=== PATIENT | female | born 1970 | race Caucasian/White ===

== ENCOUNTER 2019-09-25 01:02 | Emergency (ER) | payer BC, SELFPAY ==
[2019-09-25 01:03] VITALS: BP 119/84; PULSE 91; RESP 16; TEMP 36.4; O2SAT 99; BMI 23.3
--- NOTE | 2019-09-25 01:24 | ED.VIS.GEN ---
History of Present Illness Chief Complaint: Dental Informant: Patient Narrative: Patient states that she is developed swelling along the left lower gumline and mandible. She notes it is painful. She is trying to find a dentist. Past Medical History - Allergies and Home Meds Allergies/Adverse Reactions: Allergies aspirin Allergy (Verified 09/25/19 01:07) Hives ibuprofen Allergy (Verified 09/25/19 01:07) Hives Penicillins Allergy (Verified 09/25/19 01:07) Hives Smoking Status: Light Smoker (<10/day) Review of Systems General: Denies: Chills, Fever, Sweats Eyes: Denies: Visual changes - bilaterally, Diplopia ENT: Reports: - - Gumline swelling. Denies: Rhinorrhea, Sore throat Cardiovascular: Denies: Chest pain, Palpitations Respiratory: Denies: Dyspnea, Cough, Dyspnea on exertion Gastrointestinal: Denies: Abdominal pain, Nausea, Vomiting, Diarrhea, Melena, Hematochezia Genitourinary: Denies: Dysuria, Hematuria, Frequency Musculoskeletal: Denies: Back pain, Extremity Pain Skin: Denies: Rash, Wounds Neurological: Denies: Headache, Weakness, Numbness Physical Exam Vital Signs/Narrative: Vital Signs Temp Pulse Resp BP Pulse Ox 09/25/19 01:03 97.5 F L 91 16 119/84 H 99 Inital Vital Signs reviewed: Yes General: Well nourished, Well developed, No Acute Distress Head: Normocephalic, Atraumatic Eyes: Perrl, EOMI ENT: Moist mucous membranes, No rhinorrhea, - - Patient has no trismus. Floor the mouth is soft. There is some mild swelling along the left lower molar. There is felt some focal decay. There is swelling along the mandible without erythema. Neck: Supple, Nontender Cardiovascular: Regular rate, Regular rhythm, No murmurs Respiratory: No distress, CTA bilaterally, Chest nontender Abdomen: Soft, Nontender, Nondistended, Normal bowel sounds Back: Nontender, Normal Inspection Extremities: Nontender, No edema Skin: Normal color, No rash Neurological: Alert, Oriented x3, Cranial nerves II-XII grossly intact, Normal Strength, Normal Sensation Psychological: Normal affect, Normal Mood Diagnostic/Tx/Re-eval - Medical Decision Making Patient was started on clindamycin due to penicillin allergy. I will write for a few [place]. Patient needs to see dentistry as soon as possible for definitive care. She was advised that the swelling will most likely worsen before it improves. ED Disposition - Plan for ED Patient: Disposition: Home or Assisted Living Diagnosis: Periapical abscess Instructions: Dental Abscess Prescriptions: Clindamycin [Cleocin] 300 mg PO 4X/DAY #80 cap Prescription Printed Hydrocodone Bitart/Apap 5-325 [[place] 5MG-325MG] 1 tab PO Q6H PRN PRN 3 Days #12 tab PRN Reason: Pain Prescription Printed Additional Instructions: Please follow-up with dentistry as soon as possible
[2019-09-25] MEDS: Clindamycin HCl 150 MG Capsule 300 MG PO (01:46)
== END 2019-09-25 01:52 | disposition home or self-care (01) ==
LOC: ED 01:41
PROVIDERS: Emergency Provider Emergency Medicine
DX: K04.7 Periapical abscess without sinus (principal); F17.200 Nicotine dependence, unspecified, uncomplicated
CPT/HCPCS: 99283

== ENCOUNTER 2021-07-01 13:38 | Outpatient (CLI) | payer BC, SELFPAY ==
[2021-07-08 15:20] LABS: HPV Reflexed? NOT INDICATED
== END 2021-07-01 23:59 | disposition home or self-care (01) ==
PROVIDERS: Visit Provider Obstetrics & Gynecology
DX: Z12.4 Encounter for screening for malignant neoplasm of cervix (principal); N77.1 Vaginitis, vulvitis and vulvovaginitis in diseases classified elsewhere
CPT/HCPCS: 88175; G0145

== ENCOUNTER 2021-07-05 12:13 | Outpatient (CLI) | payer BC, SELFPAY ==
--- NOTE | 2021-07-05 12:22 | BI_ITS ---
MAMMOGRAPHY - BILATERAL SCREENING REASON FOR EXAM: Female, 50 years old. Routine annual screening examination. PERTINENT HISTORY: Grandmother with breast cancer. TECHNIQUE: Digital bilateral breast moraima (3D mammographic acquisition) in the CC and MLO projections. 2-D mediolateral oblique (MLO) and craniocaudad (CC) views of both breasts were obtained. CAD: Full Field Digital Mammography with Computer Added Detection was performed. COMPARISON: None. Baseline examination. FINDINGS: Breast Composition: The breasts are heterogeneously dense, which may obscure small masses. There are no dominant masses or suspicious calcifications. No other significant abnormalities are identified. BI/SCRN MAMM (CAD)W/MORAIMA BILAT IMPRESSION: Negative screening mammogram. Yearly followup mammogram recommended. (A) ASSESSMENT CATEGORY: BIRADS Category 1: Negative. A letter regarding these results will be sent to the patient by the facility within 30 days. Approximately 10% of breast cancers are not detected by mammography. A normal mammogram should not delay biopsy of a clinically suspicious abnormality. [id number] Electronically Signed: Jordan Paredes MD at 13:16 EDT ,
== END 2021-07-05 23:59 | disposition home or self-care (01) ==
LOC: OPBI 12:14
PROVIDERS: Referring Provider Obstetrics & Gynecology; Visit Provider Obstetrics & Gynecology
DX: Z12.31 Encounter for screening mammogram for malignant neoplasm of breast (principal)
CPT/HCPCS: 77063; 77067

== ENCOUNTER 2023-12-30 09:52 | Observation (INO) | payer BC, SELFPAY ==
[2023-12-30] VITALS (12 sets, daily range): BP systolic 129–150; BP diastolic 75–94; PULSE 67–108; RESP 16–18; TEMP 35.8–37.1; O2SAT 96–100; BMI 26.3
--- NOTE | 2023-12-30 10:22 | CT_ITS ---
STUDY: CT ABDOMEN AND PELVIS WITH CONTRAST REASON FOR EXAM: Female, 53 years old. abdominal pain RADIATION DOSAGE (If Supplied By Facility): CTDIvol = ( 10.97 ) mGy, DLP = ( 555.30 ) mGycm TECHNIQUE: Transaxial images were obtained from the dome of the diaphragm to the symphysis pubis without oral contrast. IV 100mL Isovue-370 was administered. Sagittal and coronal images were reconstructed. Individualized dose optimization techniques were used for this CT. COMPARISON: None. FINDINGS: The visualized lung bases are unremarkable. The visualized portions of the heart are within normal limits. Normal liver. Normal gallbladder and extrahepatic biliary system. Normal spleen. Normal pancreas. Normal bilateral adrenal glands. Normal right kidney. Normal left kidney. Normal visualized stomach. Normal small intestine. Normal colon. There is a tubular, thick-walled appendix (11 mm) with periappendiceal stranding/inflammation, consistent with acute appendicitis. Small, subcentimeter reactive appearing lymph nodes in the right lower quadrant. Normal abdominal aorta. Normal inferior vena cava. Normal retroperitoneum. Normal urinary bladder. Normal abdominal wall. Normal osseous structures. CT/Abdomen/Pelvis W IV Cont ONLY IMPRESSION: Acute appendicitis without perforation or focal abscess. Electronically Signed: Lucio Thomas MD ([place]) at 11:00 EDT ,
--- NOTE | 2023-12-30 10:23 | EX.ED.DYSGE1 ---
HPI History of Present Illness Chief Complaint: Abd Pain Informant: patient Narrative Narrative: 53-year-old female presenting to the emergency room with abdominal pain. Patient states that on she went to the fair and had a sausage with onions and peppers. Monday she had sloppy Black's. She developed several episodes of diarrhea and gas/bloating in addition to abdominal discomfort. It is worse when she lays on her left side and when she moves. She has not had a fever. She notes associated nausea without vomiting she denies any urinary symptoms. She states she went to urgent care who was advised to come to emergency room as she made in an antibiotic or have appendicitis. Patient also notes that she was supposed to work mandatory overtime today and had to call off so she needs a work note. PFSH [facility] Home Medications ?Medication ?Instructions ?Recorded ?Last Taken ?Type clindamycin HCl 150 mg capsule 300 mg (2 x 150 mg) PO 4X/DAY #80 09/25/19 Unknown Rx caps Allergy/AdvReac Type Severity Reaction Status Date / Time aspirin Allergy Hives Verified 12/30/23 10:00 ibuprofen Allergy Hives Verified 12/30/23 10:00 Penicillins Allergy Hives Verified 12/30/23 10:00 Social History Smoking Status: Former smoker ROS ROS ED Constitutional Constitutional ED: Denies chills, fever(s) or weight loss Eyes Eyes: Denies change in vision or diplopia ENT ENT ED: Denies ear pain, rhinorrhea or sore throat Cardiovascular Cardiovascular: Denies chest pain, orthopnea, palpitations or racing heartbeat Respiratory/Chest Respiratory/Chest: Denies cough, dyspnea or orthopnea Gastrointestinal Gastrointestinal: Reports abdominal pain, diarrhea and nausea; Denies vomiting Genitourinary Genitourinary ED: Denies dysuria, hematuria or urinary frequency Musculoskeletal Musculoskeletal: Denies arthralgias or myalgias Integumentary Denies abscess or rash Neurologic Neurologic: Denies headache(s) or weakness Psychiatric Psychiatric: Denies anxiety, depression, suicidal ideation or suicidal thoughts Endocrine Endocrinology: Denies polydipsia, polyphagia or polyuria Allergic/Immunologic Allergic/Immunologic ED: Denies mouth swelling, tongue swelling or urticaria EXAM Physical Exam Const Vital Signs: 12/30/23 09:52 Temperature 96.4 F L Temperature Source Temporal Pulse Rate 103 H Respiratory Rate 18 Blood Pressure 150/94 H Blood Pressure Mean 112 Pulse Ox 99 Oxygen Delivery Method Room Air Positive well nourished and well developed General Appearance ED: well developed HEENT Reports normocephalic, head/scalp atraumatic and moist mucous membranes Eyes PERRL and EOMs intact bilaterally Neck no lymphadenopathy, supple and no JVD Resp normal respiratory effort and clear to auscultation bilaterally Cardio regular rate, regular rhythm and no murmurs GI GI Narrative: Mild diffuse tenderness to palpation no guarding or rebound Inspection: Negative for abdominal distention Auscultation: normoactive bowel sounds Palpation: soft; Negative for guarding or rebound tenderness present Back/Spine no CVA tenderness and normal ROM Extremity normal to inspection General Extremety ED: Negative for edema General Extremity: Negative for edema Neuro oriented x3 and CN's II-XII intact bilaterally Sensorium / Orientation: alert Motor Exam: strength 5/5 throughout Psych mental status grossly normal Mood & Affect: Negative for depressed or tearful Skin no rashes or lesions noted and no wounds MDM MDM MDM Narrative Medical decision making narrative: Differential diagnosis includes but not limited to acute colitis enteritis appendicitis cholecystitis UTI White count 10.3 with a slight shift with 80.2 neutrophils. Normal liver lipase. BMP within normal limits. CT of the abdomen pelvis was obtained which demonstrates acute appendicitis. Patient received morphine IV fluids Cipro and Flagyl (secondary to penicillin allergy). Patient was updated and I discussed the case with Dr. Verduzco who will be in to evaluate the patient. History & Record Review Discussion w/independent historian: Patient Lab Data Attestation: I reviewed the patient's lab results. Labs: Laboratory Results - last 24 hr 12/30/23 10:15 WBC 10.3 RBC 4.22 Hgb 12.7 Hct 37.8 MCV 89.6 MCH 30.1 MCHC 33.6 RDW Std Deviation 38.5 RDW Coeff of Veena 11.9 Plt Count 224 MPV 10.6 Immature Gran % (Auto) 0.400 Neut % (Auto) 80.2 H Lymph % (Auto) 12.4 L Villal[place] % (Auto) 5.8 Eos % (Auto) 0.7 Baso % (Auto) 0.5 Absolute Neuts (auto) 8.3 H Absolute Lymphs (auto) 1.28 Nucleated RBC % 0 Sodium 139 Potassium 3.6 Chloride 107 Carbon Dioxide 25.0 Anion Gap 7 BUN 10 Creatinine 0.82 Estim Creat Clear Calc 77.02 Est GFR (MDRD) Af Amer 93 Est GFR (MDRD) Non-Af 77 BUN/Creatinine Ratio 12.2 Glucose 105 Calcium 9.5 Total Bilirubin 0.70 Direct Bilirubin 0.18 AST 12 L ALT 17 Alkaline Phosphatase 93 Total Protein 7.6 Albumin 3.9 Globulin 3.7 Lipase 40 Radiography Diagnostic Testing: Clinical Impression(s) from Imaging Studies Abdomen/Pelvis CT 12/30/23 10:22 IMPRESSION: Acute appendicitis without perforation or focal abscess. Electronically Signed: Lucio Thomas MD ([place]) at 11:00 EDT Reading Location ID and State: [facility] / [place] , Service support , Management Discussion w/another healthcare provider: [facility] (Dr Verduzco) Discharge Plan Dx/Rx/DC Orders Clinical Impression: Acute appendicitis, Abdominal pain Disposition Disposition: [facility]
[2023-12-30] MEDS: Ondansetron 4 MG/2 ML Vial IV (10:27)
[2023-12-30 10:30] LABS: Absolute Lymphocyte Count 1.28 X10^3/uL (0.83-4.51); Absolute Neutrophil Count 8.3 X10^3/uL (2.0-7.7); Basophil# 0.05 X10^3/uL; Basophil% 0.5 % (0-1); Eosinophil# 0.07 X10^3/uL; Eosinophils% 0.7 % (0-5); Hematocrit 37.8 % (37-47); Hemoglobin 12.7 g/dL (12.0-15.0); Lymphocyte # 1.28 X10^3/ul (0.83-4.51); Lymphocyte % 12.4 % (19-41); Mean Corp Hgb Conc 33.6 g/dL (32-36); Mean Corpuscular Hgb 30.1 pg (27.0-32.0); Mean Corpuscular Volume 89.6 fL (81-99); Mean Platelet Vol. 10.6 fl (6.2-12.0); Monocyte% 5.8 % (0-10); NRBC Flagged by Analyzer 0 % (0-5); Neutrophil # 8.29 X10^3/uL (2.7-7.7); Neutrophil % 80.2 % (47-70); Platelet Count 224 K/mm3 (150-450); RBC Distribution Width CV 11.9 % (11.6-14.6); RBC Distribution Width SD 38.5 fl (35.1-43.9); Red Blood Count 4.22 M/mm3 (4.2-5.4); White Blood Count 10.3 K/mm3 (4.4-11.0)
[2023-12-30 10:48] LABS: AST(SGOT) 12 U/L (15-37); Alanine Aminotransfer ALT/SGPT 17 U/L (13-56); Albumin, Serum 3.9 g/dL (3.2-5.0); Alkaline Phosphatase 93 U/L (45-117); Anion Gap 7 (5-15); BUN 10 mg/dL (7-18); BUN/Creat Ratio 12.2 RATIO (10-20); Bilirubin, Direct 0.18 mg/dL (0.00-0.30); Calcium,Total 9.5 mg/dL (8.5-10.1); Chloride 107 mmol/L (98-107); Creatinine, Serum 0.82 mg/dL (0.55-1.02); EST Glomerular Filtration Rate 77 mL/min (>60); Est Glom Filt Rate - Afr Amer 93 mL/min (>60); Estimated Creatinine Clearance 77.02 ml/min; Globulin 3.7 g/dL (2.2-4.2); Glucose 105 mg/dL (74-106); Lipase 40 U/L (13-75); Potassium 3.6 mmol/L (3.5-5.1); Protein, Total 7.6 g/dL (6.4-8.2); Sodium Level 139 mmol/L (136-145)
--- NOTE | 2023-12-30 11:06 | PCM.HP.STD ---
HPI - General General Date of Admission: 12/30/23 HPI Narrative ROJELIO THAPA, is a 53 F who presents to the ER due to worsening right lower quadrant pain starting at 11 PM last night. Patient did have nausea and vomiting. Patient pain continued to get worse. Patient is a normal white blood cell count with a left shift in the ER and CT abdomen pelvis showed acute appendicitis. Patient's only abdominal surgery is a cyst removal on her right ovary laparoscopically. PFSH Home Medications ?Medication ?Instructions ?Recorded ?Last Taken ?Type clindamycin HCl 150 mg capsule 300 mg (2 x 150 mg) PO 4X/DAY #80 09/25/19 Unknown Rx caps Allergy/AdvReac Type Severity Reaction Status Date / Time aspirin Allergy Hives Verified 12/30/23 10:00 ibuprofen Allergy Hives Verified 12/30/23 10:00 Penicillins Allergy Hives Verified 12/30/23 10:00 Social History Smoking Status: Former smoker Vital Signs Vital Signs Vital Signs: 12/30/23 09:52 Temperature 96.4 F L Temperature Source Temporal Pulse Rate 103 H Respiratory Rate 18 Blood Pressure 150/94 H Blood Pressure Mean 112 Pulse Ox 99 Oxygen Delivery Method Room Air Weight Weight: 158 lb 6.4 oz Body Mass Index (BMI) 26.3 Physical Exam Const alert, oriented x3 and no apparent distress HEENT normocephalic and head/scalp atraumatic Resp normal respiratory effort Cardio regular rate GI soft to palpation; Negative for non-distended Palpation: tender RLQ; Negative for guarding Extremity no clubbing, cyanosis or edema Neuro CN's II-XII intact bilaterally Psych mental status grossly normal Results Lab / Micro Data 12/30/23 10:15 12/30/23 10:15 Labs: Laboratory Results - last 24 hr 12/30/23 10:15: WBC 10.3, RBC 4.22, Hgb 12.7, Hct 37.8, MCV 89.6, MCH 30.1, MCHC 33.6, RDW Std Deviation 38.5, RDW Coeff of Veena 11.9, Plt Count 224, MPV 10.6, Immature Gran % (Auto) 0.400, Neut % (Auto) 80.2 H, Lymph % (Auto) 12.4 L, [place] % (Auto) 5.8, Eos % (Auto) 0.7, Baso % (Auto) 0.5, Absolute Neuts (auto) 8.3 H, Absolute Lymphs (auto) 1.28, Nucleated RBC % 0, Sodium 139, Potassium 3.6, Chloride 107, Carbon Dioxide 25.0, Anion Gap 7, BUN 10, Creatinine 0.82, Estim Creat Clear Calc 77.02, Est GFR (MDRD) Af Amer 93, Est GFR (MDRD) Non-Af 77, BUN/Creatinine Ratio 12.2, Glucose 105, Calcium 9.5, Total Bilirubin 0.70, Direct Bilirubin 0.18, AST 12 L, ALT 17, Alkaline Phosphatase 93, Total Protein 7.6, Albumin 3.9, Globulin 3.7, Lipase 40 Imaging Radiology Impression Abdomen/Pelvis CT 12/30/23 10:22 IMPRESSION: Acute appendicitis without perforation or focal abscess. Electronically Signed: Lucio Thomas MD ([place]) at 11:00 EDT Reading Location ID and State: [facility] / [place] , Service support , Assessment & Plan Assessment/Plan (1) Acute appendicitis: PLAN: Plan 1. Discussed procedure laparoscopic appendectomy, possible open with patient and her along with the risk but not limited to bleeding, infection/abscess, injury to another organ (small bowel, colon, etc.), adhesion, hernia at incision sites, and anesthesia. Patient and her had no further question this time. Sarah Verduzco M.D. Pager: [phone] [facility] [address] [place] [address], [address] [place] [address] Office: [phone]
--- NOTE | 2023-12-30 11:10 | NURSING ---
ICU OBS ROBOTHAM APPENDICITIS
[2023-12-30] MEDS: Ciprofloxacin 400 MG/200 ML BAG 200 MG IV (11:19)
[2023-12-30] MEDS: Morphine 4 MG/ML Syringe IV (11:19)
[2023-12-30] MEDS: metroNIDAZOLE 500 MG/100 ML BAG 100 MG IV (12:20)
--- NOTE | 2023-12-30 12:50 | APP_PTH ---
PATIENT: ROJELIO THAPA LOC: MS3 U#:[id number] AGE/SX: 53/F [place] [facility] [place]30/[address]: Dr. Sarah Verduzco MD : 1970 BED: 1 DIS: 12/30/2023 SPEC #: [id number] RECD: 01/01/24 07:13 STATUS: JOAQUÍN PASTOROsmar #: [id number] SYL: 12/30/23 12:[address]: Sarah Verduzco DEPT: SURGICAL PATHOLOGY RECD BY: Valeria Phillips ENTERED: 01/01/24 10:28 SP TYPE: APPENDIX OTHR DR: Tammy Melendez, FIELD AIDE-C Tissues: Appendix, NOS Procedures: Surgery Specimen Level III HEADER OPERATION: Laparoscopic appendectomy PRE-OP DIAGNOSIS: Acute appendicitis TISSUE SUBMITTED: Appendix MICROSCOPIC DIAGNOSIS Appendix, appendectomy: Acute necrotizing appendicitis. Acute serositis. . 01/02/2024 MICROSCOPIC DESCRIPTION Slides are reviewed. GROSS DESCRIPTION Received in fixative is one container labeled with the patient's name and designated appendix. The specimen consists of an L shaped appendix measuring 6.5 cm in length and up to 1.0 cm in diameter. Also present in the container is a detached piece of tissue consisting of tip of appendix measuring 1.0cm in length. The attached periappendiceal adipose tissue measures up to 0.5 cm in width. The serosa is congested. No obvious perforation is identified. The lumen does not contain fecal material. No fecalith is identified. Chief Clerk sections are submitted in one cassette. / SJ:mr 01/01/2024 TC:2 CPT: 52273
--- NOTE | 2023-12-30 13:15 | PCM.PRE.AN2 ---
ASA Classification* ASA Classification ASA Classification: 1 and E Assessment & Plan Anesthesia* Anesthesia Assessment Anesthesia Assessment: Discussed sedation and/or anesthesia options, risks, benefits, and alternatives with patient/parents/legal guardian/POA. Questions invited. The patient/parents/legal guardian/POA seems to understand and agrees to proceed with anesthesia plan. Reviewed the physical assessment, medical history, allergy history and patient home medications list prior to surgery/procedure/anesthetic and documented any changes. Performed airway and anesthesia risk assessments. Anesthesia Type Anesthesia Type: General Anesthesia Focused Assessment* Temperature: 96.4 F Pulse Rate: 103 Blood Pressure: 150/94 Respiratory Rate: 18 Pulse Ox: 99 Airway Assessment Mouth opens: >3 cm Mallampati Score: II Focused Labs Anesthesia Preop lab: CBC WBC 10.3 K/mm3 (4.4-11.0) 12/30/23 10:15 RBC 4.22 M/mm3 (4.2-5.4) 12/30/23 10:15 Hgb 12.7 g/dL (12.0-15.0) 12/30/23 10:15 Hct 37.8 % (37-47) 12/30/23 10:15 Plt Count 224 K/mm3 (150-450) 12/30/23 10:15 CHEMISTRY Potassium 3.6 mmol/L (3.5-5.1) 12/30/23 10:15 Sodium 139 mmol/L (136-145) 12/30/23 10:15 BUN 10 mg/dL (7-18) 12/30/23 10:15 Creatinine 0.82 mg/dL (0.55-1.02) 12/30/23 10:15 Glucose 105 mg/dL (74-106) 12/30/23 10:15 COAG Pre-Assessment Diagnosis/Proposed Procedure Planned Operative Procedure(s): Laproscopic appendectomy Anesthesia History Anesthesia History - revenue cycle analyst: Anesthesia History - revenue cycle analyst Hx Hospitalization Any Problems With Anesthesia No 12/30/23 12:07 Cholinesterase deficiency No 12/30/23 12:07 You/Your Family Experience No 12/30/23 12:07 fever (hyperthermia) with Relationship Recent Exposure to Contagious No 12/30/23 12:07 Disease Does patient have nerve No 12/30/23 12:07 stimulator Patient instructed to have No 12/30/23 12:07 device shut off --Does patient have Pacemaker No 12/30/23 12:07 or ICD? When Was Last Pacemaker Check QUESTION #4 FULL TEXT: You/Your Family Experience fever (hyperthermia) with Anesthesia Last Oral Intake Last Oral intake: Last Oral Intake NPO since Meds taken in AM with sips of Yes 12/30/23 12:07 water? Meds patient instructed to had meds this morning with 12/30/23 12:07 take am of surgery water PONV PONV - revenue cycle analyst: PONV - revenue cycle analyst Female HX of Motion Sickness HX of N/V After Surgery Non-Smoker Duration of Surgery greater than 60 minutes Number of Risk Factors PONV Score Height & Weight Height & Weight: Anesthesia: Height & Weight Height 5 ft 5 in 12/30/23 12:07 Weight: 71.849 kg 12/30/23 12:07 Body Mass Index (BMI) 26.3 12/30/23 12:07 Respiratory Assessment Respiratory Assessment - revenue cycle analyst: Respiratory Tract Infection Hx - revenue cycle analyst Hx Respiratory Tract Infection No 12/30/23 12:07 STOP Sleep Apnea STOP Sleep Apnea - revenue cycle analyst: STOP Sleep Apnea - revenue cycle analyst Hx Hypertension No 12/30/23 12:07 Hx Sleep Apnea No 12/30/23 12:07 CPAP BIPAP Do you snore loudly (louder No 12/30/23 12:07 than talking or can be heard Do you often feel tired/ No 12/30/23 12:07 fatigued/ sleepy during daytime? Has anyone observed you stop No 12/30/23 12:07 breathing during sleep? STOP Results Negative 12/30/23 12:07 QUESTION #5 FULL TEXT : Do you snore loudly (louder than talking or can be heard through closed doors)? Tobacco Use History Tobacco Use History - revenue cycle analyst: Tobacco Use History - revenue cycle analyst Tobacco Use Smoking Status Former smoker 12/30/23 10:00 Hx Tobacco Use Yes 09/25/19 01:07 Years Smoking Packs Smoked per Day Smoking Cessation Date was Yes - quit smoking within 15 12/30/23 10:00 within the last 15 years years Hx Smoking Cessation Date Hx Smoking Cessation Counseling Hematologic Medial History Hematologic Hx - revenue cycle analyst: Hematologic Medical Hx - accounting clerk Hx of Blood Transfusion Hx of Transfusion in last 3 Months Date of Last Transfusion (if within last 3 months) Ever experience any problems with transfusion(s)? Specify any problems Hx of Preganancy in last 3 Months Nurse Filling Out Transfusion & Questions: Date: Time: Patient unable to answer at this time (ie. confused, unrespo /Reproduction History /Reproductive History - revenue cycle analyst: /Reproductive Hx- revenue cycle analyst Hx Now No 12/30/23 12:07 Gestational Age (in weeks): EDC: Hx Hx Para Hx Section SAB No 12/30/23 12:07 PFSH Home Medications ?Medication ?Instructions ?Recorded ?Last Taken ?Type oxycodone 5 mg capsule 5 mg PO Q6H PRN pain 3 days #10 12/30/23 Unknown Rx caps Allergy/AdvReac Type Severity Reaction Status Date / Time aspirin Allergy Hives Verified 12/30/23 10:00 ibuprofen Allergy Hives Verified 12/30/23 10:00 Penicillins Allergy Hives Verified 12/30/23 10:00 Surgical History S/P laparoscopic procedure Social History Smoking Status: Former smoker Review of Systems (Anesthesia) ROS Narrative System reviewed and no additional complaints, except as documented.
[2023-12-30] MEDS: Bupiv/Epi 0.25% 30 ML Vial (13:32)
--- NOTE | 2023-12-30 13:39 | PCM.OPRPT ---
Report of Operation Date of Procedure: 12/30/23 Pre-Operative Diagnosis: Acute appendicitis Post-Operative Diagnosis: Same Surgery/Procedure Performed:: Laparoscopic appendectomy Surgeon: Sarah Verduzco Type of Anesthesia: General/Supplemental Anesthesiologist: Homar Taveras Special Medications: Cipro/Flagyl IV in the ER for acute appendicitis Specimen's removed: Appendix Estimated Blood Loss (mL): 10 cc Fluids Replaced: 700 cc Description of Procedure: Indications: 53-year-old female presented to the ER with new right lower quadrant pain last night. On workup she was found to have acute appendicitis on CT and a leukocytosis of 10.3 with a left shift. Patient was started on antibiotics in the ER for acute appendicitis-symptom Pro/Flagyl IV Description of the procedure: The patient was placed on operating table in supine position. General anesthesia was induced. A timeout was completed verifying correct patient, procedure, position and special equipment prior to beginning procedure. Abdomen was prepped and draped in usual sterile fashion. Incision was made in the natural skin line below the umbilicus with a 15 blade scalpel. The fascia was elevated and incised. Entry into the peritoneum was confirmed visually and no bowel was noted in the vicinity of the incision. The Poe trocar was placed under direct vision. Abdomen insufflated with a pressure of 12-15 mmHg. Patient tolerated insertion well. The scope was inserted and the abdomen inspected. No injuries from initial trocar placement were noted. Minimal amount of fluid was seen in the right lower quadrant. An direct visualization 2 -5 mm trocars were placed one above the symphysis pubis and below the hairline and one in the left lower quadrant lateral to the rectus muscle. Care is taken to avoid injury to the bladder and inferior epigastric vessels. The table was placed in Trendelenburg position with the right side elevated. The appendix was grasped with atraumatic grasper and elevated. It was noted to be inflamed. A window was developed in the mesoappendix at the point between the base of the appendix and the cecum. An endoscopic 45 mm linear cutting stapler blue load was then used to divide and staple the base of the appendix. Enseal was used to divide the mesoappendix. There was dense adhesions near the tip of the appendix did come out in 2 pieces, previous nonperforated. Complete appendix was removed. The appendix was withdrawn into the Poe trocar after being placed endoscopically retrieval bag. Appendix was sent to pathology. The appendiceal stump was then irrigated and hemostasis was assured. Fluid was suctioned no other pathology was identified. Secondary trochars were removed under direct visualization. No bleeding was noted trocar sites. The laparoscope withdrawn and the umbilical trocar removed. The abdomen was allowed to collapse. Local anesthesia of 30 mL of 0.25% Marcaine was used at the incision sites. The umbilical trocar site was closed with the [id number] 0 Vicryl suture. The skin was closed using sutures of 4-0 Monocryl and Steri-Strips. The patient was extubated. The patient tolerated the procedure well and was taken to the postanesthesia care unit in satisfactory condition. Complications none
--- NOTE | 2023-12-30 13:43 | DCINST_ITS ---
Discharge Instructions Diet Discharge Diet: Light diet - advance as tolerated Activity Discharge Activity: May Not Drive (while taking narcotic pain medications.) May shower in (days): 1 Lifting Restrictions: no lifting >20 lbs x 2 wks, no strenuous exercise for 4 wks Dressing / Incision Call your doctor if your incision/area has: Continuous Slow Oozing, Sudden Increased Bleeding, Increased Pain/ Swelling, Increased Redness, Foul Smelling Discharge and Swelling at the incision site Call your doctor if you observe: Fever of 101 or Higher Remove Dressing in: 2 days Cleanse incision/area with: Soap & Water Additional Dressing/Incision Instructions:: Steri-Strips will fall off in 7 to 10 days, if they do not fall off okay to remove after 10 days. Follow Up Care Please Follow Up With: Sarah Verduzco MD When: Call the office for a follow-up appointment 2 weeks; after 5 PM and on the weekends call [phone] with any concerns. Test Results: Test results from this visit will be discussed in further detail at your follow- up appointment, if applicable. Discharge Plan Admission Admit Date/Time: 12/30/23 11:44 Attending Provider: Sarah Verduzco Primary Care Provider: Tammy Melendez Discharge Orders/Prescriptions Prescriptions: New oxycodone 5 mg capsule 5 mg PO Q6H PRN (Reason: pain) 3 Days Qty: 10 0RF Discontinued clindamycin HCl 150 MG capsule 300 mg PO 4X/DAY Qty: 80 0RF Referrals / Follow Up: Tammy Melendez, [employer] [Primary Care Provider] - Disposition Disposition (needs filled in before D/C Order can be placed): Home, Self Care
--- NOTE | 2023-12-30 13:53 | PCM.POST.ANE ---
Anesthesia: Postop Eval I Current Vital Signs Temperature: 98.2 F Pulse Rate: 104 Blood Pressure: 134/88 Respiratory Rate: 16 Pulse Ox: 99 Assessment Airway patent: Yes Spontaneous unlabored respirations: Yes Mental status: Awake nausea: No Vomiting: No Anesthesia Complication: No Fluid Hydration Crystalloid volume administer (ml): 700 Total IV fluid infused: 700 Progress Note Anesthesia document: Postop Eval 1 completed: Yes
--- NOTE | 2023-12-30 13:54 | PCM.POSTANE2 ---
Anesthesia Postop Eval I Sum Postop Eval Completion status Anesthesia document: Postop Eval 1 completed: Yes Anesthesia Postop Eval I Summary Anesthesia Postop Eval I Summary: Anesthesia Postop Eval I: Assessment Summary Airway patent Yes 12/30/23 13:54 Spontaneous unlabored Yes 12/30/23 13:54 respirations Mental status Awake 12/30/23 13:54 nausea No 12/30/23 13:54 Vomiting No 12/30/23 13:54 Anesthesia Postop Eval I: Fluid Summary Crystalloid volume administer 700 12/30/23 13:54 (ml) Colloids volume administered ( ml) Blood Product volume administered (ml) Total IV fluid infused 700 12/30/23 13:54 Anesthesia Postop Eval I: Summary Notes Anesthesia Complication No 12/30/23 13:54 Anesthesia Complication Comment: Post-operative progress note Anesthesia: Postop Eval II Evaluation Mental status: Awake Pain Level: 1 nausea: No Vomiting: No
--- NOTE | 2023-12-30 14:32 | SUR.PHASEI ---
1415 awaiting transfer to [facility]
== END 2023-12-30 18:48 | disposition home or self-care (01) ==
LOC: ED 11:13 → SDC 11:29 → MS3 12:15
PROVIDERS: Admitting Provider Surgery; Emergency Provider Emergency Medicine; PCP Nurse Practitioner Family; Visit Provider Surgery
PROC: 0DTJ4ZZ Resection of Appendix, Percutaneous Endoscopic Approach (ICD-10-PCS; CPT 44970; principal; 2023-12-30 12:30)
DX: K35.80 Unspecified acute appendicitis (principal); Z87.891 Personal history of nicotine dependence
CPT/HCPCS: 44970; 00840; 74177; 80048; 80076; 83690; 85025; 88304; 96365; 96375; 99282; J7030; Q9967; A4216; C1760; J0744; J2405